=== PATIENT | female | born 1960 | race Caucasian/White ===

== ENCOUNTER 2016-09-27 08:45 | Emergency (ER) | payer SELFPAY ==
[~2016-09-27] VITALS: Ht 162.6 cm; Wt 45.8 kg
[2016-09-27 08:48] VITALS: BP 165/80; PULSE 87; RESP 19; TEMP 98.1; O2SAT 98
[2016-09-27] MEDS ORDERED: LISI30TA4 PO (08:55)
[2016-09-27] MEDS ORDERED: CARB6.5S5 EACH EAR (09:05)
--- NOTE | 2016-09-27 09:06 | PD ---
HPI . Left ear pain Chief Complaint: ENT Complaint Time Seen by Provider: 08:56 Travel History International Travel<30 days: No Contact w/Intl Traveler<30days: No Traveled to known affect area: No History of Present Illness HPI This patient presents with left ear discomfort for a month. She states that her ear feels stopped up. She states that she has been using an over-the- counter earwax removal system and her symptoms have not improved. She states that the whole left side of her face hurts. She also feels like she has some nasal congestion and has been having a cough. She has not been taking any over- the-counter cold medication. She rates her ear pain 9/10. [facility] Past Medical History Hypertension: Yes ?: Not Past Surgical History Appendectomy: Yes Hysterectomy: Yes Social History Alcohol Use: Yes Tobacco Use: No Substance Use: No Allergies-Medications (Allergen,Severity, Reaction): Coded Allergies: Penicillin (Verified Allergy, Severe, Anaphylaxis, 09/27/16) Reported Meds & Prescriptions Reported Meds & Active Scripts Active Reported Lisinopril 30 Mg Tab 30 Mg PO DAILY Review of Systems Except as stated in HPI: all other systems reviewed are Neg General / Constitutional: No: Fever, Chills Eyes: No: Drainage, Redness HENT: Positive: Congestion, Earache Cardiovascular: No: Chest Pain or Discomfort Respiratory: Positive: Cough Physical Exam Narrative GENERAL: Awake and alert and in no acute distress. SKIN: Warm and dry. HEAD: Atraumatic. Normocephalic. EYES: Pupils equal and round. Extraocular movements are intact. ENT: No nasal bleeding or discharge. Mucous membranes pink and moist. Her left EAC is impacted with cerumen. The TM cannot be visualized. The right EAC also has some cerumen but is not impacted. She does not have any pain on movement of the auricles or compression of the tragus. Her nose has no edema of the nasal turbinates. No discharge is noted. Her oropharynx is clear. NECK: Trachea midline. Her neck is supple with no cervical lymphadenopathy. CARDIOVASCULAR: Regular rate and rhythm. Heart sounds are normal. RESPIRATORY: No accessory muscle use. Lungs are clear with good air movement throughout. GASTROINTESTINAL: Abdomen soft, non-tender, nondistended. MUSCULOSKELETAL: No obvious deformities. No edema. NEUROLOGICAL: Awake and alert. No obvious cranial nerve deficits. Motor grossly within normal limits. Normal speech. PSYCHIATRIC: Appropriate mood and affect; insight and judgment normal. Data Data Last Documented VS Vital Signs Date Time Temp Pulse Resp B/P Pulse Ox O2 Delivery O2 Flow Rate FiO2 09/27/16 08:48 98.1 87 19 165/80 98 MDM Medical Decision Making Medical Screen Exam Complete: Yes Emergency Medical Condition: Yes Differential Diagnosis Differential diagnosis of ear pain includes eustachian tube dysfunction, otitis externa, otitis media, TMJ syndrome Narrative Course This patient presents with a one-month history of left ear pain. On exam, she has a cerumen impacted EAC. She will be discharged with prescription for Debrox. In addition, the patient is complaining with some cold symptoms. Her physical exam is benign. I will give her my discharge instructions for symptomatic treatment of a cold. Diagnosis Primary Impression: Impacted cerumen of left ear Additional Impression: Upper respiratory infection Qualified Code: J06.9 - Upper respiratory tract infection, unspecified type Patient Instructions: Cerumen Impaction (ED), Cold Symptoms (ED), General Instructions Additional Instructions: I recommend the use of a Neti Pot. You may use a nasal spray such as Afrin for up to 3 days as needed for nasal congestion. You may take an rhtc-pip-[id number] antihistamine such as Zyrtec, Eunice or Claritin as needed for runny secretions. You may take pseudoephedrine as needed for congestion. You will need to sign for this at the pharmacy. You may take plain Mucinex, 1200 mg twice a day as needed for thick secretions. You may take a cough syrup such as Delsym as needed for cough. Motrin as needed for fever and body aches. Throat lozenges/sprays as needed for sore throat. Warm salt water gargles for sore throat. Hot tea with lemon and honey also helps soothe a sore throat. Med/Other Pt SpecificInfo: Prescription(s) given Scripts Carbamide Peroxide Otic Drops (Debrox Otic Drops)6.5% Soln5-10 Drop EACH EAR BID PRN (Ear Wax Removal) #1 BOTTLE Ref 0 up to 4 days. Prov:Nela Carnes MD 09/27/16 Disposition: 01 DISCHARGE HOME Condition: Stable Nela Carnes MD Sep 27, 2016 09:05
== END 2016-09-27 09:21 | disposition home or self-care (01) ==
LOC: PHEFT 08:45
DX: H61.22 Impacted cerumen, left ear (principal); J06.9 Acute upper respiratory infection, unspecified; I10 Essential (primary) hypertension
CPT/HCPCS: 99283